=== PATIENT | male | born 1990 | race Caucasian/White ===

== ENCOUNTER 2023-12-19 12:18 | Outpatient (AMB) | payer MEDICARE, MEDICAID, SELFPAY ==
[2023-12-19 12:37] VITALS: BMI 30.2
--- NOTE | 2023-12-19 12:37 | MHC.AMNUTRGE ---
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 Pt presents with his mom who prepares most meals. challenges lack of meal schedule choosing low sodium foods (soup, crackers) Reports walking most days of the week and gradually working on weight loss. reports 20 lbs wt loss in a year. B: Core protein shakes, water L: low sodium soup d: chicken /potoatoes fish: once a week fruits: 0/d ve x/wk dairy: 2 x + cheese BS Monitoring Most Recent Diabetes Results: No Data to Display ZYN-Oleukub-Zh.Jeor Equation Height: 5 ft 6 in Weight: 187 lb Resting Metabolic Rate: 1727.92 Calculated Activity Level: Mild Activity Calories Needed to Maintain Weight: 2375.89 Diagnosis Nutrition problem #1: food nutri know defi As related to (etiology) #1: diagnosis As evidenced by (sign/symptom) #1: knowledge deficit of diet Assessment & Plan Assessment & Plan (1) HTN (hypertension): Code(s): I10 - Essential (primary) hypertension Category: Medical Plan: Instruct on low sodium concepts Patient Instructions: Reduce on sodium intake to less than 2000 mg/day unless otherwise specified by your doctor follow healthy plate method be aware of sauces/cheese/ultra processed foods which tend to be higher in sodium, see low sodium meal concepts Coding Level of Care Code Nutr Indiv Intake (53804) Diagnoses HTN (hypertension) I10 Time Spent (min) 30
[2023-12-19 13:04] VITALS: BMI 30.2
== END 2023-12-19 12:59 | disposition home or self-care (01) ==
PROVIDERS: PCP Physician Assistant Medical; Visit Provider Dietitian, Registered
DX: I10 Essential (primary) hypertension (principal)

== ENCOUNTER → 2023-12-19 12:18 | Outpatient (BNVA) | payer MEDICARE, MEDICAID, SELFPAY | PROVIDERS: PCP Physician Assistant Medical; Visit Provider Dietitian, Registered | DX: I10 Essential (primary) hypertension (principal); Z71.3 Dietary counseling and surveillance | CPT/HCPCS: 97802 ==